=== PATIENT | female | born 1985 | race Caucasian/White ===

== ENCOUNTER 2017-01-28 04:26 | Emergency (ER) | payer OTHER ==
[~2017-01-28] VITALS: Ht 162.6 cm; Wt 66.0 kg
[2017-01-28 04:30] VITALS: Ht 162.6 cm; Wt 66.0 kg
[2017-01-28 05:45] LABS: BASOPHILS % 0.4 % (0.0-2.0); EOSINOPHILS # 0.3 10^3/ul (0.0-0.5); EOSINOPHILS % 3.5 % (0.0-7.0); HEMATOCRIT 39.8 % (37.0-47.0); HEMOGLOBIN 13.6 g/dl (12.0-16.0); LYMPHOCYTES # 2.4 10^3/ul (0.8-2.9); LYMPHOCYTES % 31.7 % (15.0-51.0); MEAN CORPUSCULAR HGB CONC 34.2 g/dl (32.0-37.0); MEAN CORPUSCULAR VOLUME 84.9 fl (82.0-101.0); MEAN PLATELET VOLUME 10.6 fl (7.4-10.4); MONOCYTE # 0.7 10^3/ul (0.3-0.9); MONOCYTES % 9.6 % (0.0-11.0); NEUTROPHILS % 54.7 % (39.0-77.0); PLATELET COUNT 229 10^3/UL (140-415); RED BLOOD COUNT 4.69 10^6/ul (4.20-5.40); RED CELL DISTRIBUTION WIDTH 12.4 % (11.5-14.5); WHITE BLOOD COUNT 7.7 10^3/ul (4.8-10.8)
[2017-01-28 06:11] LABS: ALBUMIN/GLOBULIN RATIO 1.08; CREATININE 0.62 mg/dl (0.44-1.00); POTASSIUM 3.8 mmol/L (3.5-5.1); TOTAL PROTEIN 7.7 g/dl (6.1-8.1)
[2017-01-28 06:14] LABS: ADD UMIC YES; UR AMORPHOUS CRYSTAL MODERATE /HPF (NONE SEEN); UR ASCORBIC ACID NEGATIVE (NEGATIVE); UR BILIRUBIN (Dip) NEGATIVE (NEGATIVE); UR BLOOD (Dip) NEGATIVE (NEGATIVE); UR CLARITY SLIGHTLY CLOUDY (CLEAR); UR COLOR YELLOW (YELLOW); UR GLUCOSE (Dip) NEGATIVE (NEGATIVE); UR KETONES (Dip) TRACE mg/dL (NEGATIVE); UR LEUKOCYTE ESTERASE (Dip) NEGATIVE Leu/ul (NEGATIVE); UR MUCUS FEW /HPF (NONE SEEN); UR NITRITE (Dip) NEGATIVE (NEGATIVE); UR RBC 1 /HPF (0-5); UR SPECIFIC GRAVITY (Dip) 1.025 (1.003-1.030); UR SQUAMOUS EPITHELIAL CELL FEW /HPF (FEW); UR TOTAL PROTEIN (Dip) 1+ mg/dl (NEGATIVE); UR UROBILINOGEN (Dip) 1+ mg/dL (NEGATIVE)
[2017-01-28] MEDS ORDERED: ONDANSETRON 4 MG INJ IV STA (06:27)
[2017-01-28] MEDS ORDERED: morphine 4 MG/ML VIAL IV STA (06:27)
[2017-01-28] MEDS ORDERED: SOD CHLORIDE 0.9% 1,000 ML IV STA (06:27)
--- NOTE | 2017-01-28 07:27 | RADRPT ---
PROCEDURE: CT Abdomen and pelvis without contrast. CLINICAL INDICATION: Abdominal pain. TECHNIQUE: CT scan of the abdomen and pelvis was performed on a multi-detector high-resolution CT scanner. Contiguous axial images were obtained from the lung bases to the ischial tuberosities wit hout intravenous contrast. Coronal and sagittal reformatted images were also obtained. Images were reviewed on the PACS workstation. One or more of the following dose reduction techniques were used: - Automated exposure control. - Adjustment of the mA and/or kV according to patient size. - Use of iterative reconstruction technique. Exam CTD/vol = 8.80 mGy. Total exam DLP = 489.84 mGy-cm. COMPARISON: None. FINDINGS: Evaluation of the lung bases demonstrates no pleural or parenchymal disease. Abdomen: The liver is normal in size. There is no focal mass or dilatation of the biliary tree. T he gallbladder is not distended. Multiple large gallstones are identified. The spleen, pancreas an d bilateral adrenal glands are within normal limits. Bilateral kidneys are normal in size with no c ontour deforming mass identified. There is no radiopaque renal or ureteral calculus identified. Th ere is no hydronephrosis or hydroureter. There is no retroperitoneal adenopathy. The abdominal aor ta is of normal caliber. There is moderate retained stool within the colon. There is no bowel obstruction or free air. A no rmal appendix is identified. There is no diverticulosis or diverticulitis. There is no ascites. Pelvis: The bladder is unremarkable. The uterus and adnexa are within normal limits. There is no significant pelvic adenopathy or free fluid. Evaluation of the osseous structures demonstrates no suspicious lytic or blastic lesion. IMPRESSION: No acute abnormality identified within the abdomen and pelvis. Moderate retained stool within the colon. Cholelithiasis. .Champ Bennett MD, MD Date Time Electronically viewed and signed by .Champ Bennett MD, MD on 01/28/2017 07:26 .T/
[2017-01-28] MEDS ORDERED: IBUP-1542 PO (07:42)
[2017-01-28] MEDS ORDERED: ONDA4TAB14 PO (07:42)
--- NOTE | 2017-01-28 08:05 | ERD ---
ER Documentation Chief Complaint Date/Time DATE: 01/28/17 TIME: 08:01 Chief Complaint lower abd pain x 1 day HPI Patient is a 31-year-old female with no medical problems who presents with abdominal pain.The patient's pain started last night. The patient's pain is radiating to the back and she describes it as a 10 out of 10 and constant pain. She tried ibuprofen with no help. She said that it sharp and strong. She has had nausea but no vomiting. She has had no fevers. She does not currently have a primary doctor. Upon review of old medical records this is the patient' s first visit to the ER. ROS All systems reviewed and are negative except as per history of present illness. Medications Home Meds Active Scripts Ondansetron (Ondansetron Odt) 4 Mg Tab.rapdis, 4 MG PO Q6H Y for NAUSEA AND/OR VOMITING, #10 TAB Prov:MATHEW MERCHANT MD 01/28/17 Ibuprofen* (Motrin*) 600 Mg Tab, 600 MG PO Q6H Y for PAIN AND OR ELEVATED TEMP, #30 TAB Prov:MATHEW MERCHANT MD 01/28/17 Allergies Allergies: Coded Allergies: No Known Allergy (Unverified , 01/28/17) PMhx/Soc Medical and Surgical Hx: pt denies Medical Hx, pt denies Surgical Hx Hx Alcohol Use: No Hx Substance Use: No Hx Tobacco Use: No Smoking Status: Never smoker FmHx Family History: No diabetes Physical Exam Vitals Vital Signs Date Time Temp Pulse Resp B/P Pulse Ox O2 Delivery O2 Flow Rate FiO2 01/28/17 04:30 97.8 61 20 115/59 100 Physical Exam Const: Mild distress secondary to pain Head: Atraumatic Eyes: Normal Conjunctiva ENT: Normal External Ears, Nose and Mouth. Neck: Full range of motion..~ No meningismus. Resp: Clear to auscultation bilaterally Cardio: Regular rate and rhythm, no murmurs Abd: Soft, Diffuse tenderness to palpation without rebound or guarding Skin: No petechiae or rashes Back: No midline or flank tenderness Ext: No cyanosis, or edema Neur: Awake and alert Psych: Normal Mood and Affect Result Diagram: 01/28/17 0512 01/28/17 0512 Results 24 hrs Laboratory Tests Test 01/28/17 05:12 White Blood Count 7.710^3/ul Red Blood Count 4.6910^6/ul Hemoglobin 13.6g/dl Hematocrit 39.8% Mean Corpuscular Volume 84.9fl Mean Corpuscular Hemoglobin 29.0pg Mean Corpuscular Hemoglobin Concent 34.2g/dl Red Cell Distribution Width 12.4% Platelet Count 49683^3/UL Mean Platelet Volume 10.6fl Neutrophils % 54.7% Lymphocytes % 31.7% Monocytes % 9.6% Eosinophils % 3.5% Basophils % 0.4% Nucleated Red Blood Cells % 0.0/100WBC Neutrophils # (Manual) 4.210^3/ul Lymphocytes # 2.410^3/ul Monocytes # 0.710^3/ul Eosinophils # 0.310^3/ul Basophils # 0.010^3/ul Nucleated Red Blood Cells # 0.010^3/ul Urine Color YELLOW Urine Clarity SLIGHTLY CLOUDY Urine pH 6.0 Urine Specific [place] 1.025 Urine Ketones TRACEmg/dL Urine Nitrite NEGATIVEmg/dL Urine Bilirubin NEGATIVEmg/dL Urine Urobilinogen 1+mg/dL Urine Leukocyte Esterase NEGATIVELeu/ul Urine Microscopic RBC 1/HPF Urine Microscopic WBC 1/HPF Urine Squamous Epithelial Cells FEW/HPF Urine Amorphous Crystals MODERATE/HPF Urine Mucus FEW/HPF Urine Hemoglobin NEGATIVEmg/dL Urine Glucose NEGATIVEmg/dL Urine Total Protein 1+mg/dl Sodium Level 141mmol/L Potassium Level 3.8mmol/L Chloride Level 105mmol/L Carbon Dioxide Level 25mmol/L Anion Gap 15 Blood Urea Nitrogen 12mg/dl Creatinine 0.62mg/dl Glucose Level 108mg/dl Calcium Level 9.0mg/dl Total Bilirubin 0.0mg/dl Direct Bilirubin 0.00mg/dl Indirect Bilirubin 0.0mg/dl Aspartate Amino Transf (AST/SGOT) 25IU/L Alanine Aminotransferase (ALT/SGPT) 34IU/L Alkaline Phosphatase 92IU/L Total Protein 7.7g/dl Albumin 4.0g/dl Globulin 3.70g/dl Albumin/Globulin Ratio 1.08 Lipase 57U/L Current Medications Medications (Trade) Dose Ordered Sig/Bianca Route PRN Reason Start Time Stop Time Status Last Admin Dose Admin Sodium Chloride (NS) 1,000 ml @ 1,000 mls/hr Q1H STAT IV 01/28/17 06:27 01/28/17 07:26 DC 01/28/17 06:41 Morphine Sulfate (morphine) 4 mg ONCE STAT IV 01/28/17 06:27 01/28/17 06:28 DC 01/28/17 06:41 Ondansetron HCl (Zofran Inj) 4 mg ONCE STAT IV 01/28/17 06:27 01/28/17 06:28 DC 01/28/17 06:41 Procedures/MDM CT abdomen pelvis negative per radiology. Patient is a 31-year-old female with no medical problems who presents with abdominal pain. She had a full workup including laboratory studies, urinalysis , and CT scan of the abdomen and pelvis. Her workup was basically negative. At this point I doubt appendicitis, cholecystitis, pancreatitis, bowel obstruction, or ectopic . I believe outpatient management is appropriate. Will be given a prescription for ibuprofen and Zofran and can return for any worsening symptoms. The patient should follow-up with the local clinics within 24 hours for reevaluation if she does not currently have a primary doctor. She was provided with copies of her laboratory studies and CT scan report prior to discharge. Departure Diagnosis: Primary Impression: Abdominal pain Abdominal location: generalized Qualified Code: R10.84 - Generalized abdominal pain Condition: Fair Patient Instructions: Abdominal Pain Ref[facility]: [facility] Usted se leblanc hecho un examen mdico de control que le indica que no est en mario condicin que requiera tratamiento urgente en el Departamento de Emergencia. Un estudio ms profundo y el tratamiento de koenig condicin pueden esperar sin ningn riesgo hasta que usted sea atendida/o en el consultorio de koenig mdico o mario cl joycelyn. Es responsabilidad suya arreglar mario rachid para el seguimiento del viviane. MANEJO DE CONDICIONES NO URGENTES EN EL FUTURO 1) Si usted tiene un mdico de atencin primaria: Usted debera llamar a koenig mdico de atencin primaria antes de venir al departamento de emergencia. Despus de las horas de consultorio, koenig doctor o koenig asociado/a est disponible por telfono. El mdico o enfermero de mandy en el servicio telefnico puede asesorarle por blue medio para atender el problema, o viviane contrario se puede programar mario rachid. 2) Si usted no tiene un mdico de atencin primaria: Llame al mdico o clnica de referencia que aparece abajo davonte las horas de consultorio para hacer mario rachid para que le vean. CLINICAS: [facility] [phone] [facility] [phone] [facility] [phone] [facility]. [facility] [phone] [facility]. [facility] [phone] [facility]. [phone] [address] Additional Instructions: Visite a koenig mdico maana para un EXAMEN.Regrese a estas instalaciones si no se mejora yaya esperbamos o yaya le dijimos. MATHEW MERCHANT MD Jan 28, 2017 08:05
[2017-01-28 08:49] VITALS: BP 126/70; PULSE 62; RESP 20; TEMP 98.1
== END 2017-01-28 08:50 | disposition home or self-care (01) ==
LOC: E/R 04:26
DX: R10.84 Generalized abdominal pain (principal); R11.0 Nausea
CPT/HCPCS: 36415; 74176; 80053; 81001; 83690; 85025; 96374; 96375; J2270; J2405; J7030; Z7502